=== PATIENT | female | born 1935 | race Caucasian/White ===

== ENCOUNTER 2020-01-01 11:51 | Emergency (ER) | payer MEDICARE, OTHER ==
[~2020-01-01] VITALS: Ht 154.9 cm; Wt 59.0 kg
[~2020-01-01 11:51] MED LIST: ALBU18HF2 IH; ASPI-1265 PO; CARV25TA2 PO; CITA20TA28 PO; FLUT1BLS3 PO; FURO40TA4 PO; IRBE75TA8 PO; LEVO500T2 PO; LOVA40TA76 PO; PANT40TA4 PO; TRAZ-251 PO
[2020-01-01 12:45] LABS: BASOPHILS # (AUTO) 0.2 X10'3 (0-0.2); BASOPHILS % (AUTO) 1.2 % (0-1); EOSINOPHILS # (AUTO) 0.1 X10'3 (0-0.9); EOSINOPHILS % (AUTO) 0.5 % (0-6); HEMATOCRIT 32.4 % (35.0-45.0); HEMOGLOBIN 10.7 g/dl (12.0-16.0); LYMPHOCYTES # (AUTO) 1.3 X10'3 (1.1-4.8); LYMPHOCYTES % (AUTO) 10.5 % (21-51); MEAN CORPUSCULAR HEMOGLOBIN 28.2 PG (27.0-31.0); MEAN CORPUSCULAR HGB CONC 33.1 g/dL (33.0-36.5); MEAN CORPUSCULAR VOLUME 85.2 FL (78-98); MEAN PLATELET VOLUME 6.7 FL (7.4-10.4); MONOCYTES # (AUTO) 0.7 X10'3 (0-0.9); MONOCYTES % (AUTO) 6.1 % (2-12); NEUTROPHILS % (AUTO) 81.7 % (42-75); PLATELET COUNT 582 X10'3 (140-440); RED BLOOD COUNT 3.81 X10'6 (4.20-5.60); RED CELL DISTRIBUTION WIDTH 13.4 % (11.5-14.5); WHITE BLOOD COUNT 12.2 X10'3 (4.5-11.0)
[2020-01-01 12:57] LABS: ALANINE AMINOTRANSFERASE 32 U/L (12-78); ALBUMIN 2.6 G/DL (3.4-5.0); ALBUMIN/GLOBULIN RATIO 0.6 (1.1-1.5); ALKALINE PHOSPHATASE 129 IU/L (46-116); ANION GAP 12 (8-16); ASPARTATE AMINO TRANSFERASE 21 U/L (10-37); BILIRUBIN,TOTAL 0.4 MG/DL (0.1-1.0); BLOOD UREA NITROGEN 11 MG/DL (7-18); BUN/CREATININE RATIO 5.7 (6.6-38.0); CALCIUM 8.7 MG/DL (8.5-10.1); CHLORIDE 98 MMOL/L (99-107); CREATININE 1.93 MG/DL (0.40-0.90); GLUCOSE 117 MG/DL (70-104); LIPASE 117 U/L (73-393); POTASSIUM 3.3 MMOL/L (3.5-5.1); SODIUM 136 MMOL/L (135-145); TOTAL CARBON DIOXIDE 26.2 MMOL/L (24-32); TOTAL PROTEIN 7.3 G/DL (6.4-8.2); eGFR 25 ML/MIN
[2020-01-01] MEDS ORDERED: normal saline 1000ML IV soln IVB ONE ×2 (13:00→13:05)
[2020-01-01] MEDS ORDERED: ondansetron/PF 4mg/2ml inj IV ONE (13:00)
[2020-01-01 13:09] LABS: CLARITY,URINE SLIGHTLY CLOUDY (Clear); COLOR,URINE YELLOW (Yellow); GLUCOSE, URINE NEGATIVE (Neg); KETONES,URINE NEGATIVE (Neg); LEUKOCYTE ESTERASE ,URINE TRACE (Neg); NITRITES, URINE NEGATIVE (Neg); OCCULT BLOOD,URINE NEGATIVE (Neg); PH,URINE 7.5 (4.8-8.0); PROTEIN,URINE 30 mg/dl (Neg); UROBILINOGEN,URINE 0.2 E.U/dL (0.2-1.0)
[2020-01-01 13:15] LABS: UA COLLECTION TYPE OTHER
[2020-01-01 13:17] LABS: BACTERIA,URINE 2+ /HPF (Neg); MUCUS STRANDS NONE SEEN /LPF (Neg); RBC,URINE NONE SEEN /HPF (0-2); RENAL CELLS, URINE FEW /HPF; SQUAMOUS EPITHELIAL CELL,UR MANY /LPF (FEW); YEAST FEW /HPF (NEGATIVE)
[2020-01-01] MEDS ORDERED: CefTRIAXone 2gm/D5W 50ml 50 ML IV ONE (13:35)
[2020-01-01] MEDS ORDERED: CefTRIAXone inj 2,000 MG in normal saline 100ml IV soln 100 ML IV ONE (13:36)
[2020-01-01 13:55] LABS: PLATELET ESTIMATE INCREASED; POLYCHROMASIA FEW; TOTAL CELLS COUNTED 100
[2020-01-01] MEDS ORDERED: ONDA4TAB12 PO (14:03)
[2020-01-01] MEDS ORDERED: LOPE-144 PO (14:03)
[2020-01-01] MEDS ORDERED: CEPH500C5 PO (14:03)
[2020-01-01 15:44] VITALS: BP 165/80
== END 2020-01-01 15:48 | disposition home or self-care (01) ==
LOC: ER 11:52
DX: E86.0 Dehydration (principal); N39.0 Urinary tract infection, site not specified; R11.10 Vomiting, unspecified; I10 Essential (primary) hypertension; J45.909 Unspecified asthma, uncomplicated; K21.9 Gastro-esophageal reflux disease without esophagitis; M19.90 Unspecified osteoarthritis, unspecified site; F32.9 Major depressive disorder, single episode, unspecified; Z90.49 Acquired absence of other specified parts of digestive tract; Z90.710 Acquired absence of both cervix and uterus; Z98.890 Other specified postprocedural states; Z88.0 Allergy status to penicillin; Z88.2 Allergy status to sulfonamides; Z88.5 Allergy status to narcotic agent; Z88.8 Allergy status to other drugs, medicaments and biological substances; Z79.82 Long term (current) use of aspirin; Z79.899 Other long term (current) drug therapy
CPT/HCPCS: 36415; 80053; 81001; 83690; 85025; 93005; 96365; 96375; 99285; J0696; J2405; J7030; 96361; 99284

== ENCOUNTER 2022-06-16 13:00 | Emergency (ER) | payer MEDICARE ==
[~2022-06-16] VITALS: Ht 154.9 cm; Wt 62.0 kg
[~2022-06-16 13:00] MED LIST changes: -FURO40TA4 PO; -LEVO500T2 PO; +LOPE-144 PO; +ONDA4TAB12 PO; -PANT40TA4 PO; +PANT40TA54 PO
[2022-06-16] MEDS ORDERED: ipratropium/albuterol 3ml nebule NEB ONE (13:15)
--- NOTE | 2022-06-16 13:27 | NUR ---
RT DOING SVN AT THIS TIME
[2022-06-16 14:32] VITALS: BP 147/59
[2022-06-16] MEDS ORDERED: ALBU6.7H14 INH (14:56)
--- NOTE | 2022-06-16 15:09 | NUR ---
influenza swab cancelled per PRECISION LAYOUT WORKER Cory
== END 2022-06-16 15:16 | disposition home or self-care (01) ==
LOC: ER 13:01
DX: J45.909 Unspecified asthma, uncomplicated (principal); I10 Essential (primary) hypertension; K21.9 Gastro-esophageal reflux disease without esophagitis; M19.90 Unspecified osteoarthritis, unspecified site; Z90.49 Acquired absence of other specified parts of digestive tract; Z90.710 Acquired absence of both cervix and uterus; Z88.0 Allergy status to penicillin; Z88.2 Allergy status to sulfonamides
CPT/HCPCS: 71045; 93005; 94640; 99284

== ENCOUNTER 2022-10-10 20:47 | Inpatient (IN) | payer MEDICARE, MEDICAID ==
[~2022-10-10] VITALS: Ht 154.9 cm; Wt 61.4 kg
[~2022-10-10 20:47] MED LIST changes: +ALBU6.7H14 INH
[2022-10-10 21:02] LABS: BASOPHILS # (AUTO) 0.1 X10'3 (0-0.2); BASOPHILS % (AUTO) 0.7 % (0-1); EOSINOPHILS # (AUTO) 0.3 X10'3 (0-0.9); EOSINOPHILS % (AUTO) 3.6 % (0-6); HEMATOCRIT 38.7 % (35.0-45.0); HEMOGLOBIN 12.6 g/dl (12.0-16.0); LYMPHOCYTES # (AUTO) 2.4 X10'3 (1.1-4.8); LYMPHOCYTES % (AUTO) 26.8 % (21-51); MEAN CORPUSCULAR HEMOGLOBIN 29.1 PG (27.0-31.0); MEAN CORPUSCULAR HGB CONC 32.7 g/dL (33.0-36.5); MEAN CORPUSCULAR VOLUME 89.1 FL (78-98); MEAN PLATELET VOLUME 7.1 FL (7.4-10.4); MONOCYTES # (AUTO) 0.7 X10'3 (0-0.9); MONOCYTES % (AUTO) 7.6 % (2-12); NEUTROPHILS # (AUTO) 5.4 X10'3 (1.8-7.7); NEUTROPHILS % (AUTO) 61.3 % (42-75); PLATELET COUNT 281 X10'3 (140-440); RED BLOOD COUNT 4.34 X10'6 (4.20-5.60); RED CELL DISTRIBUTION WIDTH 13.9 % (11.5-14.5); WHITE BLOOD COUNT 8.8 X10'3 (4.5-11.0)
[2022-10-10 21:15] LABS: ALANINE AMINOTRANSFERASE 35 U/L (12-78); ALBUMIN 3.3 G/DL (3.4-5.0); ALKALINE PHOSPHATASE 80 IU/L (46-116); ANION GAP 10 (8-16); ASPARTATE AMINO TRANSFERASE 26 U/L (10-37); BILIRUBIN,TOTAL 0.3 MG/DL (0.1-1.0); BLOOD UREA NITROGEN 33 MG/DL (7-18); BUN/CREATININE RATIO 12.8 (10.0-20.0); CALCIUM 8.9 MG/DL (8.5-10.1); CHLORIDE 98 MMOL/L (99-107); CREATININE 2.57 MG/DL (0.40-0.90); GLUCOSE 101 MG/DL (70-104); SODIUM 135 MMOL/L (135-145); TOTAL CARBON DIOXIDE 27.1 MMOL/L (24-32); TOTAL PROTEIN 6.6 G/DL (6.4-8.2); eGFR 18 ML/MIN
[2022-10-10 21:22] LABS: MAGNESIUM 2.2 MG/DL (1.5-2.4)
--- NOTE | 2022-10-10 22:54 | NUR ---
IV placed by Kiana RAY in LAC pt c/o pain when moving her arm, dc'd with catheter intact. Attempt to place IV on RFA and pt.c/o pain when instertting the catheter, removed.
[2022-10-11] MEDS ORDERED: acetaminophen 1,000mg/100ml IV 100 ML IV STA (00:06)
[2022-10-11] MEDS ORDERED: aspirin 81mg tab.chew PO ONE (00:10)
[2022-10-11] MEDS ORDERED: ondansetron/PF 4mg/2ml inj IV ONE (00:10)
[2022-10-11] MEDS ORDERED: magnesium hydroxide 30ml (MOM) UD suspension PO PRN (01:20)
[2022-10-11] MEDS ORDERED: diphenhydrAMINE 50 mg/ml inj IV PRN (01:20)
[2022-10-11] MEDS ORDERED: diphenhydrAMINE 25mg capsule PO PRN (01:20)
[2022-10-11] MEDS ORDERED: bisacodyl 10mg suppository rectal RC PRN (01:20)
[2022-10-11] MEDS ORDERED: acetaminophen 650mg rectal suppository RC PRN (01:20)
[2022-10-11] MEDS ORDERED: ondansetron 4mg rapidly disintigrating tab PO PRN ×2 (01:20→12:10)
[2022-10-11] MEDS ORDERED: mag hydrox/Alum hydrox/simeth 30ml oral suspension PO PRN (01:20)
[2022-10-11] MEDS ORDERED: acetaminophen 325mg tablet PO PRN ×2 (01:20)
[2022-10-11 01:49] LABS: HEMOGLOBIN A1C 5.5 % (4.5-6.2); PHOSPHORUS 4.4 MG/DL (2.3-4.5)
[2022-10-11] MEDS: dextrose 5%-1/2 normal saline 1,000 ML IV SCH ×3 (02:03→22:15)
[2022-10-11 03:04] LABS: CLARITY,URINE CLEAR (Clear); COLOR,URINE YELLOW (Yellow); GLUCOSE, URINE NEGATIVE (Neg); KETONES,URINE NEGATIVE (Neg); LEUKOCYTE ESTERASE ,URINE NEGATIVE (Neg); NITRITES, URINE NEGATIVE (Neg); OCCULT BLOOD,URINE NEGATIVE (Neg); PROTEIN,URINE NEGATIVE (Neg); UROBILINOGEN,URINE 0.2 E.U/dL (0.2-1.0)
[2022-10-11 03:05] LABS: UA COLLECTION TYPE VOIDED
[2022-10-11] MEDS: ondansetron/PF 4mg/2ml inj IV PRN ×3 (05:07→20:44)
[2022-10-11] MEDS: ipratropium/albuterol 3ml nebule NEB PRN ×2 (05:50→11:22)
[2022-10-11 08:25] LABS: APTT 32 SECONDS (22-32)
[2022-10-11] MEDS ORDERED: SUMA50TA17 PO (09:32)
[2022-10-11] MEDS ORDERED: DILT-94 PO (09:32)
[2022-10-11] MEDS ORDERED: MULT-1085 PO (09:32)
[2022-10-11] MEDS ORDERED: AMIO200T61 PO (09:32)
[2022-10-11] MEDS ORDERED: TIOT4MIS2 INH (09:32)
[2022-10-11] MEDS ORDERED: DOCU-21 PO (09:32)
[2022-10-11] MEDS ORDERED: APIX2.5T PO (09:32)
[2022-10-11] MEDS ORDERED: TRIA1TAB3 PO (09:32)
[2022-10-11] MEDS ORDERED: HYDR-3965 PO (09:32)
[2022-10-11] MEDS ORDERED: ATOR-2 PO (09:32)
[2022-10-11] MEDS: docusate sod 100mg capsule PO SCH ×3 (09:33→20:00)
[2022-10-11] MEDS ORDERED: RIVA20TA PO (09:50)
[2022-10-11] MEDS ORDERED: FLUT50DI3 PO (09:53)
[2022-10-11] MEDS ORDERED: ALBU2.5V13 (09:53)
[2022-10-11] MEDS ORDERED: ALB0.5UD PO (09:56)
--- NOTE | 2022-10-11 10:31 | NUR ---
Received report from Celia in the ER who is not the primary nurse for this patient. Patient will be brought up in a wheelchair by a tech.
[2022-10-11 10:33] LABS: BASOPHILS % (AUTO) 0.4 % (0-1); EOSINOPHILS # (AUTO) 0.3 X10'3 (0-0.9); HEMATOCRIT 38.5 % (35.0-45.0); HEMOGLOBIN 12.5 g/dl (12.0-16.0); LYMPHOCYTES # (AUTO) 0.8 X10'3 (1.1-4.8); LYMPHOCYTES % (AUTO) 7.5 % (21-51); MEAN CORPUSCULAR HEMOGLOBIN 29.1 PG (27.0-31.0); MEAN CORPUSCULAR HGB CONC 32.5 g/dL (33.0-36.5); MEAN CORPUSCULAR VOLUME 89.5 FL (78-98); MONOCYTES # (AUTO) 0.5 X10'3 (0-0.9); MONOCYTES % (AUTO) 5.2 % (2-12); NEUTROPHILS # (AUTO) 8.5 X10'3 (1.8-7.7); NEUTROPHILS % (AUTO) 83.9 % (42-75); PLATELET COUNT 250 X10'3 (140-440); WHITE BLOOD COUNT 10.1 X10'3 (4.5-11.0)
[2022-10-11 10:42] LABS: ALANINE AMINOTRANSFERASE 32 U/L (12-78); ALBUMIN 3.2 G/DL (3.4-5.0); ALKALINE PHOSPHATASE 77 IU/L (46-116); ANION GAP 9 (8-16); ASPARTATE AMINO TRANSFERASE 24 U/L (10-37); BILIRUBIN,TOTAL 0.3 MG/DL (0.1-1.0); BLOOD UREA NITROGEN 32 MG/DL (7-18); BUN/CREATININE RATIO 15.5 (10.0-20.0); CALCIUM 8.6 MG/DL (8.5-10.1); CHLORIDE 100 MMOL/L (99-107); CREATININE 2.06 MG/DL (0.40-0.90); GLUCOSE 115 MG/DL (70-104); POTASSIUM 3.8 MMOL/L (3.5-5.1); SODIUM 135 MMOL/L (135-145); TOTAL CARBON DIOXIDE 25.8 MMOL/L (24-32); TOTAL PROTEIN 6.4 G/DL (6.4-8.2); eGFR 23 ML/MIN
[2022-10-11 11:11] VITALS: BP 168/70
--- NOTE | 2022-10-11 11:11 | NUR ---
Patient states she would like a breathing treatment. Paged RT.
[2022-10-11] MEDS ORDERED: regadenoson 0.4mg/5ml syringe IV PRN (12:10)
[2022-10-11] MEDS ORDERED: aminophylline 250mg/10ml inj. IV PRN (12:10)
[2022-10-11] MEDS ORDERED: HYDROcodone/acetaminophen 5mg/325mg tablet PO PRN (12:10)
[2022-10-11] MEDS ORDERED: nitroGLYCERIN 0.4mg SUBLingual tab SL PRN (12:10)
[2022-10-11] MEDS ORDERED: metoprolol tartrate 1mg/ml inj IV PRN (12:10)
[2022-10-11] MEDS ORDERED: SUMAtriptan 25 MG tablet PO PRN (12:20)
[2022-10-11 14:00] VITALS: BP 180/77
[2022-10-11] MEDS: albuterol 2.5 MG/3 ML nebule NEB PRN ×2 (14:17→20:45)
[2022-10-11] MEDS: ipratropium 0.5 MG/2.5ML nebule IH SCH ×2 (14:17→20:44)
--- NOTE | 2022-10-11 14:56 | NUR ---
Patient's BP is high 180/77 with N/V and headache. Paged Dr. Treviño to ask for PRN medication for high BP.l
[2022-10-11] MEDS ORDERED: hydrALAZINE 20mg/ml inj. IV PRN (15:20)
--- NOTE | 2022-10-11 15:41 | NUR ---
After administering Zofran and migraine medication BP rechecked BP 154/76 HR 103. Will not administer Hydralazine at this time since SBO<160. Will continue to monitor and administer PRN Hydralazine if necessary.
[2022-10-11 18:00] VITALS: BP 168/73
[2022-10-11] MEDS ORDERED: rivaroxaban 20mg tablet PO SCH (18:00)
--- NOTE | 2022-10-11 18:43 | NUR ---
Problems reprioritized. Patient report given, questions answered & plan of care reviewed with NATHANIEL Darnell.
[2022-10-11] MEDS: pantoprazole 40mg Tablet.DR PO SCH (20:00)
[2022-10-11] MEDS ORDERED: traZODone 50mg tablet PO SCH (21:00)
[2022-10-11] MEDS ORDERED: temazepam 15mg capsule PO PRN (21:00)
--- NOTE | 2022-10-11 21:10 | NUR ---
Patient in room ORTHO 4015. I have received report from Betsey ARMSTRONG and had the opportunity to ask questions and assume patient care.
[2022-10-11 22:03] VITALS: BP 155/64
--- NOTE | 2022-10-11 22:28 | NUR ---
patient has a bad cough. paged md to order some cough suppresant. spoke with patients family. patient is to be NPO after midnight for stress test.
[2022-10-12] VITALS (16 sets, daily range): BP systolic 138–175; BP diastolic 56–84
[2022-10-12] MEDS: ipratropium 0.5 MG/2.5ML nebule IH SCH ×3 (02:55→15:00)
[2022-10-12 06:57] LABS: BASOPHILS % (AUTO) 0.3 % (0-1); EOSINOPHILS # (AUTO) 0.3 X10'3 (0-0.9); EOSINOPHILS % (AUTO) 3.9 % (0-6); HEMOGLOBIN 11.7 g/dl (12.0-16.0); LYMPHOCYTES # (AUTO) 1.1 X10'3 (1.1-4.8); LYMPHOCYTES % (AUTO) 15.5 % (21-51); MEAN CORPUSCULAR HEMOGLOBIN 29.6 PG (27.0-31.0); MEAN CORPUSCULAR HGB CONC 33.4 g/dL (33.0-36.5); MEAN CORPUSCULAR VOLUME 88.6 FL (78-98); MEAN PLATELET VOLUME 7.4 FL (7.4-10.4); MONOCYTES # (AUTO) 0.7 X10'3 (0-0.9); MONOCYTES % (AUTO) 9.4 % (2-12); NEUTROPHILS # (AUTO) 5.1 X10'3 (1.8-7.7); NEUTROPHILS % (AUTO) 70.9 % (42-75); PLATELET COUNT 230 X10'3 (140-440); RED BLOOD COUNT 3.95 X10'6 (4.20-5.60); RED CELL DISTRIBUTION WIDTH 13.7 % (11.5-14.5); WHITE BLOOD COUNT 7.1 X10'3 (4.5-11.0)
[2022-10-12 07:14] LABS: ALANINE AMINOTRANSFERASE 41 U/L (12-78); ALBUMIN 2.8 G/DL (3.4-5.0); ALBUMIN/GLOBULIN RATIO 0.9 (1.1-1.5); ALKALINE PHOSPHATASE 70 IU/L (46-116); ANION GAP 8 (8-16); ASPARTATE AMINO TRANSFERASE 34 U/L (10-37); BILIRUBIN,TOTAL 0.3 MG/DL (0.1-1.0); BLOOD UREA NITROGEN 14 MG/DL (7-18); CALCIUM 8.5 MG/DL (8.5-10.1); CHLORIDE 101 MMOL/L (99-107); CHOL/HDL RATIO 1.8 (0.00-4.99); CHOLESTEROL 102 MG/DL (0-200); CREATININE 1.55 MG/DL (0.40-0.90); GLUCOSE 103 MG/DL (70-104); HDL CHOLESTEROL 57 MG/DL (35-60); LDL CHOLESTEROL 36 MG/DL (50-100); POTASSIUM 3.5 MMOL/L (3.5-5.1); SODIUM 135 MMOL/L (135-145); TOTAL CARBON DIOXIDE 25.6 MMOL/L (24-32); TOTAL PROTEIN 5.8 G/DL (6.4-8.2); TRIGLYCERIDES 62 MG/DL (20-135); eGFR 32 ML/MIN
[2022-10-12] MEDS: dextrose 5%-1/2 normal saline 1,000 ML IV SCH (07:20)
--- NOTE | 2022-10-12 07:24 | NUR ---
Patient in room ORTHO 4015. I have received report from NATHANIEL Darnell and had the opportunity to ask questions and assume patient care.
[2022-10-12] MEDS: docusate sod 100mg capsule PO SCH ×2 (07:26→07:47)
[2022-10-12] MEDS: pantoprazole 40mg Tablet.DR PO SCH (07:44)
[2022-10-12] MEDS ORDERED: amiodarone 200mg tablet PO SCH (08:00)
[2022-10-12] MEDS ORDERED: multivitamins, therapeutics tablet PO SCH (08:00)
[2022-10-12] MEDS ORDERED: atorvastatin 20mg tablet PO SCH (08:00)
[2022-10-12] MEDS ORDERED: diltiazem CD 120mg capsule (once-daily) PO SCH (08:00)
[2022-10-12] MEDS ORDERED: triamterene/HCTZ 37.5/25mg tablet PO SCH (08:00)
[2022-10-12] MEDS ORDERED: aspirin 81mg tab.chew PO SCH (08:00)
--- NOTE | 2022-10-12 16:48 | NUR ---
Patient was discharged at 1618 with instructions and verbalizing understanding of instructions in wheelchair accompanied by nursing staff and family going home via private vehicle. All lines and tubes including PIV with cannula intact and tele monitor have been removed. Education has been provided at bedside and all questions have been answered. Patient is stable and appropriate for discharge.
== END 2022-10-12 16:18 | disposition home or self-care (01) | DRG 391 ==
LOC: ER 20:48 → ED HOLD 10-11 01:24 → ORTHO 4S 10-11 10:45
PROVIDERS: ADMIT Family Medicine; ATTEND Family Medicine
PROC: 4A02XM4 Measurement of Cardiac Total Activity, External Approach (ICD-10-PCS; principal; 2022-10-12)
PROC: 3E073KZ Introduction of Other Diagnostic Substance into Coronary Artery, Percutaneous Approach (ICD-10-PCS; 2022-10-12)
DX: K29.70 Gastritis, unspecified, without bleeding (principal); I21.A1 Myocardial infarction type 2; N17.0 Acute kidney failure with tubular necrosis; I50.42 Chronic combined systolic (congestive) and diastolic (congestive) heart failure; I13.0 Hypertensive heart and chronic kidney disease with heart failure and stage 1 through stage 4 chronic kidney disease, or unspecified chronic kidney disease; I48.20 Chronic atrial fibrillation, unspecified; K21.9 Gastro-esophageal reflux disease without esophagitis; E78.5 Hyperlipidemia, unspecified; I27.20 Pulmonary hypertension, unspecified; R51.9 Headache, unspecified; I08.1 Rheumatic disorders of both mitral and tricuspid valves; F32.A Depression, unspecified; J44.9 Chronic obstructive pulmonary disease, unspecified; N18.30 Chronic kidney disease, stage 3 unspecified; I25.10 Atherosclerotic heart disease of native coronary artery without angina pectoris; Z79.01 Long term (current) use of anticoagulants; Z88.0 Allergy status to penicillin; Z79.51 Long term (current) use of inhaled steroids; Z79.899 Other long term (current) drug therapy; Z88.1 Allergy status to other antibiotic agents; Z88.2 Allergy status to sulfonamides; Z90.49 Acquired absence of other specified parts of digestive tract; Z90.710 Acquired absence of both cervix and uterus; Z91.041 Radiographic dye allergy status; Z88.5 Allergy status to narcotic agent; Z79.82 Long term (current) use of aspirin
CPT/HCPCS: 36415; 71045; 78452; 80053; 80061; 81003; 83036; 83735; 83880; 84100; 84484; 85025; 85610; 85730; 87081; 93005; 93306; 94640; 94760; 96374; 97116; 97161; 97530; 99285; A6258; A9500; G0378; J0131; J0280; J0360; J2405; J2785

== ENCOUNTER 2025-01-01 11:19 | Day surgery (SDC) | payer MEDICARE, MEDICAID ==
[2025-01-01] VITALS (15 sets, daily range): BP systolic 112–209; BP diastolic 54–99; PULSE 71–129; RESP 14–25; TEMP 97.8; O2SAT 94–99
[~2025-01-01] VITALS: Ht 154.9 cm; Wt 61.5 kg
[~2025-01-01 11:19] MED LIST changes: +ALB0.5UD PO; -ALBU18HF2 IH; -ALBU6.7H14 INH; -ASPI-1265 PO; +ASPI81TA52 PO; +ATOR40TA71 PO; -CARV25TA2 PO; -CITA20TA28 PO; +CLOP-32 PO; +DILT-94 PO; +DOCU-21 PO; +FERR-119 PO; -FLUT1BLS3 PO; +GABA-530 PO; +HYDR-3965 PO; +HYDR100T12 PO; -IRBE75TA8 PO; -LOPE-144 PO; +LORA-268 PO; -LOVA40TA76 PO; +ONDA-103 PO; -ONDA4TAB12 PO; +POTA8CAP20 PO; +SUMA50TA17 PO; +TRIA1TAB3 PO; +VITD400T PO
[2025-01-01 12:51] LABS: MEAN PLATELET VOLUME 7.2 FL (7.4-10.4); RED CELL DISTRIBUTION WIDTH 14.1 % (11.5-14.5)
[2025-01-01 12:58] LABS: CREATININE 1.55 MG/DL (0.40-0.90); TOTAL CARBON DIOXIDE 27.0 MMOL/L (24-32); eCRCL 19 ML/MIN; eGFR 32 ML/MIN
[2025-01-01 13:43] LABS: INR 1.0 INR
[2025-01-01] MEDS: normal saline 1000ml 1,000 ML IV SCH (13:50)
[2025-01-01] MEDS: MIDAZolam 1mg/ml 10ml vial IV ONE (13:50)
[2025-01-01] MEDS: fentaNYL/PF 50MCG/1 ML 2ML syringe IV ONE (13:50)
--- NOTE | 2025-01-01 17:50 | CARDIOLOGY REPORT ---
APPROVED REPORT EXAM: Focused, limited transesophageal echocardiogram with color flow Doppler. Patient Location: Recovery Bed 8 Blood Pressure: 198/85 mmHg Heart Rate: 97 bpm Indications POST WATCHMAN FLX EFREN CLOSURE DEVICE IMPLANTATION FOLLOW UP EVALUATE DEVICE FOR THROMBUS, POSITION, AND SEAL 31 mm WATCHMAN FLX EFREN CLOSURE DEVICE JOSE G PROBE PASSED BY: Jinny Coleman MD ENGINEER RF DEPLOYMENT: Jinny Coleman MD Previous ECHO: 11/12/24, [facility], EF: 60, small L to R shunt s/p transseptal puncture, no residual flow around device LEFT VENTRICLE Normal LV size and wall thickness. Overall systolic function is normal. LVEF is 55-60%. RIGHT VENTRICLE RV is normal size and function. ATRIA LA appears moderately dilated. Intact interatrial septum with tiny L to R shunt s/p transseptal punct ure by color and spectral Doppler. Left upper pulmonary vein identified. Successfully occluded left a trial appendage with well visualized Watchman device well positioned without thrombus. No residual fl ow detected around device in all views. PERICARDIUM Normal pericardium. No effusion. Anterior epicardial fat pad is present. CONCLUSION Normal LV size and wall thickness. Overall systolic function is normal. LVEF is 55-60%. RV is normal size and function. LA appears moderately dilated. Intact interatrial septum with tiny L to R shunt s/ p transseptal puncture by color and spectral Doppler. Left upper pulmonary vein identified. Successfu lly occluded left atrial appendage with well visualized Watchman device well positioned without throm bus. No residual flow detected around device in all views. Normal pericardium. No effusion. Anterior epicardial fat pad is present. Conclusion Normal LV size and wall thickness. Overall systolic function is normal. LVEF is 55-60%. RV is normal size and function. LA appears moderately dilated. Intact interatrial septum with tiny L to R shunt s/p transseptal punc ture by color and spectral Doppler. Left upper pulmonary vein identified. Successfully occluded left atrial appendage with well visualized Watchman device well positioned without thrombus. No residual flow detected around device in all views. Normal pericardium. No effusion. Anterior epicardial fat pad is present.
== END 2025-01-01 15:20 | disposition home or self-care (01) ==
LOC: SSTAY O 11:19
PROVIDERS: ATTEND Student in an Organized Health Care Education/Training Program
DX: I48.91 Unspecified atrial fibrillation (principal); E78.5 Hyperlipidemia, unspecified; N18.9 Chronic kidney disease, unspecified; J45.909 Unspecified asthma, uncomplicated; Z79.899 Other long term (current) drug therapy; Z98.890 Other specified postprocedural states; Z86.73 Personal history of transient ischemic attack (TIA), and cerebral infarction without residual deficits
CPT/HCPCS: 36415; 80048; 85025; 85610; 93312; 93325; 94760; J2250; J3010; J7030; 93308